=== PATIENT | male | born 1960 | race Caucasian/White ===

== ENCOUNTER 2019-07-10 17:48 | Emergency (ER) | payer OTHER, SELFPAY ==
[2019-07-10 17:55] VITALS: BP 168/96; PULSE 110; RESP 20; TEMP 36.8; O2SAT 100
--- NOTE | 2019-07-10 17:59 | ED.CHESTPAIN ---
HPI - Chest Pain General Chief Complaint: Dizziness Stated Complaint: chest pain dizzy Time Seen by Provider: 07/10/19 17:59 Source: patient and RN notes reviewed Mode of arrival: ambulatory Limitations: no limitations History of Present Illness HPI narrative: 58 year old male who presents to express care with complaints of left sternal chest pain of varying intensity since noon yesterday.Patient states that his pain is worse with exertion, denies any nausea, diaphoresis, or any shortness of breath with his pain. Patient describes his pain as being achy and sharp at times with some radiation of pain to his left arm with numbness feeling, presently rates his pain as 7/10. Patient also states that he has been experiencing intermittent episodes of feeling dizzy and lightheaded especially with position changes, denies any syncopal episodes. Patient states that he has taken (5) 81mg baby aspirins today and he took a nitro tab 1 hour ago with no improvement in his chest pain. 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 MD complaint: chest pain and other (lightheaded and dizziness) Pertinent past history: other (angina, copd, TIA,GERD,hiatal hernia, reports congenital hole in heart) Onset (ago): day(s) (1) Timing of current episode: constant Prior episodes: Yes Onset: during exertion Pain location: left chest Pain radiation: left arm Severity: moderate Pain scale (0-10): 7 Quality: aching and sharp Relieving factors: nothing Exacerbating factors: exertion Associated symptoms: other (dizziness and lightheaded) Treatment prior to arrival: aspirin and nitroglycerin Risk Factors Coronary artery disease risk factors: smoking history and hypertension Thoracic aortic dissection risk factors: longstanding hypertension Related Data Home Medications Medication Instructions Recorded Confirmed amlodipine 10 mg PO DAILY 04/12/19 07/10/19 albuterol sulfate [ProAir HFA] 2 puff INHALATION QID PRN 07/10/19 07/10/19 carvedilol 12.5 mg PO BID 07/10/19 07/10/19 fluoxetine 20 mg PO DAILY 07/10/19 07/10/19 fluticasone propionate [Flovent 2 puff INHALATION BID 07/10/19 07/10/19 HFA] latanoprost 1 drp OPHTHALMIC (EYE) QPM 07/10/19 07/10/19 lisinopril 40 mg PO DAILY 07/10/19 07/10/19 quetiapine 50 mg PO HS 07/10/19 07/10/19 ranitidine HCl 150 mg PO BID 07/10/19 07/10/19 venlafaxine 50 mg PO BID 07/10/19 07/10/19 Allergies Allergy/AdvReac Type Severity Reaction Status Date / Time Penicillins Allergy Severe Hives Verified 07/10/19 18:11 Sulfa (Sulfonamide Allergy Unknown Rash Verified 07/10/19 18:11 Antibiotics) NSAIDS (Non-Steroidal AdvReac Intermediate Other Verified 07/10/19 18:11 Anti-Inflamma Review of Systems Review of Systems: Narrative: CONSTITUTIONAL: Denies fever, chills, or sweats. EYES: Denies visual changes, redness, or discharge. ENT: Denies rhinorrhea, congestion, sore throat, or otalgia. CARDIOVASCULAR:positive for left sided chest pain with radiation to left arm no palpitations or peripheral edema RESPIRATORY: Denies cough or dyspnea. GASTROINTESTINAL: Denies abdominal pain, nausea, vomiting, or diarrhea. GENITOURINARY: Denies dysuria or hematuria. SKIN: Denies rash or itching. MUSCULOSKELETAL:reports chronic back pain, no joint pain, or myalgia. NEUROLOGIC: Denies headache, numbness to left arm no weakness, intermittent dizziness and feelings of lightheadedness. PSYCHIATRIC: Positive history anxiety or depression. All systems reviewed & are unremarkable except as noted in HPI and below PMFSH Past Medical History Medical History (Updated 07/11/19 @ 20:31 by Mira Mcduffie NP) Arthritis Back pain COPD (chronic obstructive pulmonary disease) Glaucoma Hiatal hernia Hypertension Seizures TIA
--- NOTE | 2019-07-10 18:08 | ECG_ITS ---
Measurements Intervals [place] Rate: 101 P: 56 TN: 146 QRS: 22 QRSD: 93 T: 61 QT: 330 QTc: 428 Interpretive Statements SINUS TACHYCARDIA BASELINE ARTIFACT- I, II, AVR, AVL, AVF BORDERLINE ECG Electronically Signed On 07-11-2019 8:09:31 CDT by Jaren Hernandez D.O.
== END 2019-07-10 18:30 | disposition short-term general hospital (02) ==
LOC: EXPBETH 17:52
PROVIDERS: Emergency Provider Registered Nurse; PCP Internal Medicine
DX: R42 Dizziness and giddiness (principal); R07.9 Chest pain, unspecified; F17.210 Nicotine dependence, cigarettes, uncomplicated; M19.90 Unspecified osteoarthritis, unspecified site; J44.9 Chronic obstructive pulmonary disease, unspecified; H40.9 Unspecified glaucoma; I10 Essential (primary) hypertension; Z79.82 Long term (current) use of aspirin
CPT/HCPCS: 93005; 99215; G0463

== ENCOUNTER 2019-07-19 10:45 | Emergency (ER) | payer OTHER, SELFPAY ==
--- NOTE | ~2019-07-19 | XR_ITS ---
XR knee LT min 4V DATE: 07/19/2019 11:33 INDICATION: Twisted knee on bladder. Posterolateral left knee pain TECHNIQUE: [place], crosstable lateral, AP and bilateral oblique views COMPARISON: None FINDINGS: No fracture or dislocation or joint effusion is detected. No periosteal reaction or bone de struction. Joint spaces are preserved. No radiopaque intra-articular loose body or chondrocalcinosis. Femoral artery calcification. IMPRESSION: No significant radiographic abnormality of the left knee Reviewed, dictated and finalized at location A.
[2019-07-19 10:54] VITALS: BP 107/64; PULSE 101; RESP 18; TEMP 36.7; O2SAT 100
--- NOTE | 2019-07-19 11:05 | ED.BACK ---
HPI - Back Pain/Injury General Chief Complaint: Extremity Injury, Lower Stated Complaint: back/leg injury Time Seen by Provider: 07/19/19 11:05 Source: patient and RN notes reviewed History of Present Illness HPI Narrative: Patient is a 58-year-old male that presents the urgent care with complaints of left knee pain that radiates down the leg and up the leg. Patient states that yesterday he was pressure washing on a ladder and twisted, feeling the left knee pop. Patient states that the pain is constant and sharp all over the knee. Patient denies any swelling. Denies any use of [id number] medication for pain. Patient is sitting with the left knee bent over the right knee without any notable pain. Patient appears to be under the influence. Patient is very blunt and rude. Patient also changes his story stating that he has low back pain and then states that the pain goes up to his left shoulder radiating from the left knee . Patient has no visible difficulty ambulating. No other acute complaints. No acute distress noted. Patient read the plan of care. Related Data Home Medications Medication Instructions Recorded Confirmed albuterol sulfate [ProAir HFA] 2 puff INHALATION BID PRN 07/19/19 07/19/19 amlodipine-benazepril 1 cap PO DAILY 07/19/19 07/19/19 atorvastatin 10 mg PO DAILY 07/19/19 07/19/19 carvedilol 12.5 mg PO BID 07/19/19 07/19/19 clonazepam 1 mg PO TID 07/19/19 07/19/19 dicyclomine 10 mg PO TID 07/19/19 07/19/19 finasteride 5 mg PO DAILY 07/19/19 07/19/19 fluoxetine 20 mg PO DAILY 07/19/19 07/19/19 fluticasone propionate [Flovent 2 puff INHALATION BID 07/19/19 07/19/19 HFA] ibuprofen 600 mg PO TID PRN 07/19/19 07/19/19 lisinopril 40 mg PO DAILY 07/19/19 07/19/19 omeprazole 20 mg PO DAILY 07/19/19 07/19/19 pantoprazole 40 mg PO HS 07/19/19 07/19/19 quetiapine 50 mg PO HS 07/19/19 07/19/19 ranitidine HCl 150 mg PO BID 07/19/19 07/19/19 ropinirole 0.25 mg PO DAILY 07/19/19 07/19/19 rosuvastatin 10 mg PO DAILY 07/19/19 07/19/19 tamsulosin 0.4 mg PO HS 07/19/19 07/19/19 tizanidine 4 mg PO TID PRN 07/19/19 07/19/19 tramadol 50 mg PO Q4H PRN 07/19/19 07/19/19 venlafaxine 150 mg PO DAILY 07/19/19 07/19/19 Allergies Allergy/AdvReac Type Severity Reaction Status Date / Time Penicillins Allergy Severe Hives Verified 07/19/19 11:15 Sulfa (Sulfonamide Allergy Unknown Rash Verified 07/19/19 11:15 Antibiotics) NSAIDS (Non-Steroidal AdvReac Intermediate Other Verified 07/19/19 11:15 Anti-Inflamma Review of Systems Review of Systems: Narrative: CONSTITUTIONAL: Denies fever, chills, or sweats. EYES: Denies visual changes, redness, or discharge. ENT: Denies rhinorrhea, congestion, sore throat, or otalgia. CARDIOVASCULAR: Denies chest pain, palpitations, or edema. RESPIRATORY: Denies cough or dyspnea. GASTROINTESTINAL: Denies abdominal pain, nausea, vomiting, or diarrhea. GENITOURINARY: Denies dysuria or hematuria. SKIN: Denies rash or itching. MUSCULOSKELETAL: Reports of left knee radiating up and down the right leg NEUROLOGIC: Denies headache, numbness, or weakness. All other systems reviewed are negative, except as documented in HPI. [facility] Past Medical History Medical History (Updated 07/19/19 @ 11:56 by JADA Gage) Arthritis Back pain COPD (chronic obstructive pulmonary disease) Glaucoma Hiatal hernia Hypertension Seizures TIA (transient ischemic attack) Surgical History Surgical History (Updated 07/11/19 @ 20:32 by Mira Mcduffie NP) H/O vasectomy History of tonsillectomy and adenoidectomy Hx of appendectomy Hx of cholecystectomy Family History Family History (Updated 07/11/19 @ 20:20 by Mira Mcduffie NP) Other Diabetes mellitus Heart disease Hypertension Social History Social History (Updated 07/11/19 @ 20:18 by Mira Mcduffie NP) Smoking packs per day: 0.5 Smoking cigarettes per day: 10.0 Years smoked: 35 Smoking pack-years: 17.50 [place]
== END 2019-07-19 12:03 | disposition home or self-care (01) ==
PROVIDERS: Emergency Provider Nurse Practitioner Family; PCP Internal Medicine
DX: M25.562 Pain in left knee (principal); M19.90 Unspecified osteoarthritis, unspecified site; J44.9 Chronic obstructive pulmonary disease, unspecified; H40.9 Unspecified glaucoma; I10 Essential (primary) hypertension; Z86.73 Personal history of transient ischemic attack (TIA), and cerebral infarction without residual deficits
CPT/HCPCS: 73564; 99213; G0463

== ENCOUNTER 2020-09-22 11:25 | Emergency (ER) | payer OTHER, SELFPAY ==
[2020-09-22 11:31] VITALS: BP 135/77; PULSE 83; RESP 16; TEMP 36.6; O2SAT 100
--- NOTE | 2020-09-22 11:52 | ED.GENADULT ---
HPI - General Adult General Chief complaint: Headache Stated complaint: dizzy Time Seen by Provider: 09/22/20 11:53 Source: patient Mode of arrival: ambulatory Limitations: no limitations History of Present Illness HPI narrative: 59-year-old male patient presents to the [facility] with complaints of a frontal headache for the past 3 to 4 days. Patient states that started with saw his primary doctor was told that his blood pressure was high at which given new blood pressure medications. Patient does have history of hypertension and TIA in the past. Patient does also have COPD and is an active smoker. Patient states that his blood pressure has come down but his headache is not any better and complaining of dizziness that is worse when either he sits up or lays down. Patient states he is also developed blurred vision that started yesterday. Patient states he is also had some nausea. Patient states he has had a little bit of diarrhea but no vomiting. Patient also is complaining of chest pain or shortness of breath. Related Data Home Medications Medication Instructions Recorded Confirmed albuterol sulfate [ProAir HFA] 2 puff INHALATION BID PRN 07/19/19 07/19/19 amlodipine-benazepril 1 cap PO DAILY 07/19/19 07/19/19 atorvastatin 10 mg PO DAILY 07/19/19 07/19/19 carvedilol 12.5 mg PO BID 07/19/19 07/19/19 clonazepam 1 mg PO TID 07/19/19 07/19/19 dicyclomine 10 mg PO TID 07/19/19 07/19/19 finasteride 5 mg PO DAILY 07/19/19 07/19/19 fluoxetine 20 mg PO DAILY 07/19/19 07/19/19 fluticasone propionate [Flovent 2 puff INHALATION BID 07/19/19 07/19/19 HFA] ibuprofen 600 mg PO TID PRN 07/19/19 07/19/19 lisinopril 40 mg PO DAILY 07/19/19 07/19/19 omeprazole 20 mg PO DAILY 07/19/19 07/19/19 pantoprazole 40 mg PO HS 07/19/19 07/19/19 quetiapine 50 mg PO HS 07/19/19 07/19/19 ranitidine HCl 150 mg PO BID 07/19/19 07/19/19 ropinirole 0.25 mg PO DAILY 07/19/19 07/19/19 rosuvastatin 10 mg PO DAILY 07/19/19 07/19/19 tamsulosin 0.4 mg PO HS 07/19/19 07/19/19 tizanidine 4 mg PO TID PRN 07/19/19 07/19/19 tramadol 50 mg PO Q4H PRN 07/19/19 07/19/19 venlafaxine 150 mg PO DAILY 07/19/19 07/19/19 Allergies Allergy/AdvReac Type Severity Reaction Status Date / Time Penicillins Allergy Severe Hives Verified 07/19/19 11:15 Sulfa (Sulfonamide Allergy Unknown Rash Verified 07/19/19 11:15 Antibiotics) NSAIDS (Non-Steroidal AdvReac Intermediate Other Verified 07/19/19 11:15 Anti-Inflamma Review of Systems Review of Systems: Narrative: CONSTITUTIONAL: Denies fever, chills, or sweats. EYES: Denies visual changes, redness, or discharge. ENT: Denies rhinorrhea, congestion, sore throat, or otalgia. CARDIOVASCULAR: Positive chest pain, denies palpitations, or edema. RESPIRATORY: Denies cough, positive dyspnea. GASTROINTESTINAL: Denies abdominal pain, positive nausea, denies vomiting, positive diarrhea. GENITOURINARY: Denies dysuria or hematuria. SKIN: Denies rash or itching. MUSCULOSKELETAL: Denies back pain, joint pain, or myalgia. NEUROLOGIC: Positive frontal headache, denies numbness, or weakness. PSYCHIATRIC: Denies anxiety or depression. [facility] Past Medical History Medical History Arthritis Back pain COPD (chronic obstructive pulmonary disease) Glaucoma Hiatal hernia Hypertension Seizures TIA (transient ischemic attack) Surgical History Surgical History H/O vasectomy History of tonsillectomy and adenoidectomy Hx of appendectomy Hx of cholecystectomy Family History Family History Other Diabetes mellitus Heart disease Hypertension Social History Social History Smoking packs per day: 0.5 Smoking cigarettes per day: 10.0 Years smoked: 35 Smoking pack-years: 17.50 Smoking status: Current
--- NOTE | 2020-09-22 12:03 | ECG_ITS ---
Measurements Intervals [place] Rate: 78 P: 50 ND: 154 QRS: 12 QRSD: 86 T: 62 QT: 348 QTc: 397 Interpretive Statements SINUS RHYTHM BASELINE ARTIFACT- I, II, III, AVR, AVL, AVF NORMAL ECG Electronically Signed On 09-22-2020 14:57:35 CDT by Jaren Hernandez D.O.
== END 2020-09-22 12:30 | disposition short-term general hospital (02) ==
PROVIDERS: Emergency Provider Nurse Practitioner Family; PCP Nurse Practitioner Family
DX: R51.9 Headache, unspecified (principal); R07.9 Chest pain, unspecified; R42 Dizziness and giddiness; R06.02 Shortness of breath; I10 Essential (primary) hypertension; Z86.73 Personal history of transient ischemic attack (TIA), and cerebral infarction without residual deficits; M19.90 Unspecified osteoarthritis, unspecified site; J44.9 Chronic obstructive pulmonary disease, unspecified; H40.9 Unspecified glaucoma
CPT/HCPCS: 93005; 99215; G0463

== ENCOUNTER 2020-09-25 14:23 | Emergency (ER) | payer OTHER, SELFPAY ==
[2020-09-25 14:28] VITALS: BP 148/88; PULSE 109; RESP 18; TEMP 36.3; O2SAT 100
--- NOTE | 2020-09-25 14:29 | ED.BACK ---
HPI - Back Pain/Injury General Stated Complaint: Back pain Time Seen by Provider: 09/25/20 14:29 Source: patient and RN notes reviewed History of Present Illness HPI Narrative: Patient is a 59-year-old male who presents the urgent care with complaints of acute on chronic upper back/neck pain. Patient states that his doctor will not refill his clonazepam and he is asking for refill of his medication. Patient was seen at our facility on Wednesday for chest pain and sent by EMS to [facility]. Patient states that he was discharged from the ER and they told him it was due to his thyroid issues . Patient currently denies of any acute new onset of pains or abnormalities. Denies of any recent trauma or injury. No other acute complaints. No acute distress noted. Patient aware of the plan of care. Some parts of this dictation were generated by voice recognition software and may contain typographical and/or grammatical inaccuracies. Related Data Home Medications Medication Instructions Recorded Confirmed albuterol sulfate [ProAir HFA] 2 puff INHALATION BID PRN 07/19/19 07/19/19 amlodipine-benazepril 1 cap PO DAILY 07/19/19 07/19/19 atorvastatin 10 mg PO DAILY 07/19/19 07/19/19 carvedilol 12.5 mg PO BID 07/19/19 07/19/19 clonazepam 1 mg PO TID 07/19/19 07/19/19 dicyclomine 10 mg PO TID 07/19/19 07/19/19 finasteride 5 mg PO DAILY 07/19/19 07/19/19 fluoxetine 20 mg PO DAILY 07/19/19 07/19/19 fluticasone propionate [Flovent 2 puff INHALATION BID 07/19/19 07/19/19 HFA] ibuprofen 600 mg PO TID PRN 07/19/19 07/19/19 lisinopril 40 mg PO DAILY 07/19/19 07/19/19 omeprazole 20 mg PO DAILY 07/19/19 07/19/19 pantoprazole 40 mg PO HS 07/19/19 07/19/19 quetiapine 50 mg PO HS 07/19/19 07/19/19 ranitidine HCl 150 mg PO BID 07/19/19 07/19/19 ropinirole 0.25 mg PO DAILY 07/19/19 07/19/19 rosuvastatin 10 mg PO DAILY 07/19/19 07/19/19 tamsulosin 0.4 mg PO HS 07/19/19 07/19/19 tizanidine 4 mg PO TID PRN 07/19/19 07/19/19 tramadol 50 mg PO Q4H PRN 07/19/19 07/19/19 venlafaxine 150 mg PO DAILY 07/19/19 07/19/19 Allergies Allergy/AdvReac Type Severity Reaction Status Date / Time Penicillins Allergy Severe Hives Verified 09/25/20 14:37 Sulfa (Sulfonamide Allergy Unknown Rash Verified 09/25/20 14:37 Antibiotics) NSAIDS (Non-Steroidal AdvReac Intermediate Other Verified 09/25/20 14:37 Anti-Inflamma Review of Systems Review of Systems: Narrative: CONSTITUTIONAL: Denies fever, chills, or sweats. EYES: Denies visual changes, redness, or discharge. ENT: Denies rhinorrhea, congestion, sore throat, or otalgia. CARDIOVASCULAR: Denies chest pain, palpitations, or edema. RESPIRATORY: Denies cough or dyspnea. GASTROINTESTINAL: Denies abdominal pain, nausea, vomiting, or diarrhea. GENITOURINARY: Denies dysuria or hematuria. SKIN: Denies rash or itching. MUSCULOSKELETAL: Reports of upper neck/back pain NEUROLOGIC: Denies headache, numbness, or weakness. All other systems reviewed are negative, except as documented in HPI. [facility] Past Medical History Medical History Arthritis Back pain COPD (chronic obstructive pulmonary disease) Glaucoma Hiatal hernia Hypertension Seizures TIA (transient ischemic attack) Surgical History Surgical History H/O vasectomy History of tonsillectomy and adenoidectomy Hx of appendectomy Hx of cholecystectomy Family History Family History Other Diabetes mellitus Heart disease Hypertension Social History Social History Smoking packs per day: 0.5 Smoking cigarettes per day: 10.0 Years smoked: 35 Smoking pack-years: 17.50 Smoking status: Current every day smoker Tobacco type: cigarettes Gender identity (if verbalized by the patient): Male Comments At the time of my si
== END 2020-09-25 14:45 | disposition home or self-care (01) ==
PROVIDERS: Emergency Provider Nurse Practitioner Family; PCP Nurse Practitioner Family
DX: Z76.0 Encounter for issue of repeat prescription (principal); G40.909 Epilepsy, unspecified, not intractable, without status epilepticus; M19.90 Unspecified osteoarthritis, unspecified site; J44.9 Chronic obstructive pulmonary disease, unspecified; H40.9 Unspecified glaucoma; I10 Essential (primary) hypertension; Z86.73 Personal history of transient ischemic attack (TIA), and cerebral infarction without residual deficits
CPT/HCPCS: 99211; G0463

== ENCOUNTER 2020-10-08 11:09 | Emergency (ER) | payer OTHER, SELFPAY ==
[2020-10-08 11:12] VITALS: BP 144/80; PULSE 91; RESP 20; TEMP 36.6; O2SAT 100
[2020-10-08 11:20] VITALS: BP 160/87; PULSE 87
[2020-10-08 11:22] VITALS: BP 147/94; PULSE 87
--- NOTE | 2020-10-08 11:23 | ECG_ITS ---
Measurements Intervals [place] Rate: 89 P: 47 ME: 165 QRS: 8 QRSD: 87 T: 56 QT: 342 QTc: 416 Interpretive Statements SINUS RHYTHM BASELINE WANDER- I, III NORMAL ECG Electronically Signed On 10-08-2020 11:44:37 CDT by Jaren Hernandez D.O.
[2020-10-08 11:24] VITALS: BP 149/94; PULSE 90
--- NOTE | 2020-10-08 11:28 | ED.GENADULT ---
HPI - General Adult General Chief complaint: Dizziness Stated complaint: dizzy chest tightness Time Seen by Provider: 10/08/20 11:23 Source: patient and RN notes reviewed Mode of arrival: ambulatory Limitations: no limitations History of Present Illness HPI narrative: 59-year-old male presents with complaints of dizziness, nausea, and headache (not the worst of his life) that has been going on for the past 2 days. ?Stoney reports symptoms increased today. Routine Omeprazole without relief. ?Exacerbating factors consist of changing position too fast, turning head from side to side too fast. ?Relieving factors are sitting still. ?Denies ear pain, ear itching, ear trauma, trauma to head, syncopal episodes, altered vision, altered speech, confusion, or seizure activity. ?Denies numbness or tingling in extremities. ?Denies dyspnea. ?Denies URI symptoms, fever, or chills. ?Tolerating p.o. intake well. ?Remains active. The patient reports he has not been diagnosed with COVID-19. ?The patient reports he is not waiting for the results of a COVID-19 lab test. ?The patient reports he does not have a new or worsening cough or shortness of breath. The patient reports he does not have any rhinorrhea, congestion, loss of taste, sore throat, and diarrhea. ?Denies recent traveling. Denies concerns for COVID-19 or exposures. ?At this time, the patient is not suspected of having COVID-19. Complaints of epigastric abdomen pain radiating into the chest with nausea for the past 2 days. ?Stoney reports history of a hiatal hernia and believes this time to have his esophagus stretched. ?History of hiatal hernia, problems seeing GI MD due to insurance. ?Stoney reports eating donuts and drinking milk without difficulty. ?Nausea without emesis. ?No family history of sudden . ?Denies diaphoresis. ?Diarrhea for 2 days last episode this morning without blood. ?No flank pain. Exacerbating factors consist of eating. ?No genital pain. ?No genital discharge. ?No concerns for STDs.No high fevers. ?Denies dysuria, hematuria, and genital bleeding. ?Urine output within normal limits.? Some parts of this dictation were generated by voice recognition software and may contain typographical and/or grammatical inaccuracies. Related Data Home Medications Medication Instructions Recorded Confirmed albuterol sulfate [ProAir HFA] 2 puff INHALATION BID PRN 07/19/19 10/08/20 atorvastatin 10 mg PO DAILY 07/19/19 10/08/20 carvedilol 12.5 mg PO BID 07/19/19 10/08/20 clonazepam 1 mg PO TID 07/19/19 10/08/20 dicyclomine 10 mg PO TID 07/19/19 10/08/20 finasteride 5 mg PO DAILY 07/19/19 10/08/20 fluoxetine 20 mg PO DAILY 07/19/19 10/08/20 fluticasone propionate [Flovent 2 puff INHALATION BID 07/19/19 10/08/20 HFA] ibuprofen 600 mg PO TID PRN 07/19/19 10/08/20 lisinopril 40 mg PO DAILY 07/19/19 10/08/20 omeprazole 20 mg PO DAILY 07/19/19 10/08/20 quetiapine 50 mg PO HS 07/19/19 10/08/20 ropinirole 0.25 mg PO DAILY 07/19/19 10/08/20 rosuvastatin 10 mg PO DAILY 07/19/19 10/08/20 tamsulosin 0.4 mg PO HS 07/19/19 10/08/20 tizanidine 4 mg PO TID PRN 07/19/19 10/08/20 tramadol 50 mg PO Q4H PRN 07/19/19 10/08/20 budesonide-formoterol [Symbicort] 2 puff INHALATION BID 10/08/20 10/08/20 levothyroxine 100 mcg PO DAILY 10/08/20 10/08/20 venlafaxine 100 mg PO TID 10/08/20 10/08/20 Allergies Allergy/AdvReac Type Severity Reaction Status Date / Time Penicillins Allergy Severe Hives Verified 10/08/20 11:28 Sulfa (Sulfonamide Allergy Unknown Rash Verified 10/08/20 11:28 Antibiotics) NSAIDS (Non-Steroidal AdvReac Intermediate Abdominal Verified 10/08/20 12:24 Anti-Inflamma Pain Review of Systems Review of Systems: Narrative: CONSTITUTIONAL: Denies fever, chills, sweats. EYES: Denies visual changes, redness, discharge. Complaints of swallowing problems. ENT: Denies rhinorrhea, congestion, sore throat, otalgia. CARDIOVASCULAR: Denies chest pain, palpitations, edema. RESPIRATOR
[2020-10-08] MEDS: MECLIZINE HCL 25 MG TABLET 50 MG PO (11:55)
[2020-10-08] MEDS: ONDANSETRON HCL ODT 4 MG TABLET PO (11:55)
[2020-10-08] MEDS: KETOROLAC (*BKC) 60 MG/2 ML VIAL IM (11:56)
[2020-10-08] MEDS: LIDOCAINE HCL 2% VISC SOLN 15 ML UDC PO (11:56)
[2020-10-08] MEDS: MAG HYDROX/AL HYDROX/SIMETH 30 ML UDC PO (11:56)
[2020-10-08 12:20] VITALS: BP 145/82; PULSE 82
== END 2020-10-08 12:35 | disposition home or self-care (01) ==
PROVIDERS: Emergency Provider Nurse Practitioner Family
DX: H81.10 Benign paroxysmal vertigo, unspecified ear (principal); R10.13 Epigastric pain; F17.210 Nicotine dependence, cigarettes, uncomplicated; M19.90 Unspecified osteoarthritis, unspecified site; J44.0 Chronic obstructive pulmonary disease with (acute) lower respiratory infection; I10 Essential (primary) hypertension; G40.909 Epilepsy, unspecified, not intractable, without status epilepticus; Z86.73 Personal history of transient ischemic attack (TIA), and cerebral infarction without residual deficits; Z98.52 Vasectomy status
CPT/HCPCS: 93005; 96372; 99213; A9270; G0463; J1885

== ENCOUNTER 2020-12-07 17:58 | Emergency (ER) | payer OTHER, SELFPAY ==
[2020-12-07 18:02] VITALS: BP 114/72; PULSE 95; RESP 20; TEMP 37; O2SAT 99
--- NOTE | 2020-12-07 18:51 | ED.PSYCH ---
HPI - Psych General Chief Complaint: Psychiatric Symptoms Stated Complaint: chest congestion Source: patient Mode of arrival: ambulatory Limitations: no limitations History of Present Illness HPI Narrative: Patient is a 60-year-old male who presents to urgent care. Patient presents and is slightly paranoid reporting cough. He reports history of schizophrenia. He states he is hearing voices and voices are telling him to harm himself at this time. Patient will not state a plan to harm himself. Patient states that he has no family and that they will not help. Patient is able to answer questions appropriately. Patient reports that he is on multiple medications and is medication compliant. MD complaint: suicidal ideation Related Data Home Medications Medication Instructions Recorded Confirmed albuterol sulfate [ProAir HFA] 2 puff INHALATION BID PRN 07/19/19 10/08/20 atorvastatin 10 mg PO DAILY 07/19/19 10/08/20 carvedilol 12.5 mg PO BID 07/19/19 10/08/20 clonazepam 1 mg PO TID 07/19/19 10/08/20 dicyclomine 10 mg PO TID 07/19/19 10/08/20 finasteride 5 mg PO DAILY 07/19/19 10/08/20 fluoxetine 20 mg PO DAILY 07/19/19 10/08/20 fluticasone propionate [Flovent 2 puff INHALATION BID 07/19/19 10/08/20 HFA] ibuprofen 600 mg PO TID PRN 07/19/19 10/08/20 lisinopril 40 mg PO DAILY 07/19/19 10/08/20 omeprazole 20 mg PO DAILY 07/19/19 10/08/20 quetiapine 50 mg PO HS 07/19/19 10/08/20 ropinirole 0.25 mg PO DAILY 07/19/19 10/08/20 rosuvastatin 10 mg PO DAILY 07/19/19 10/08/20 tamsulosin 0.4 mg PO HS 07/19/19 10/08/20 tizanidine 4 mg PO TID PRN 07/19/19 10/08/20 tramadol 50 mg PO Q4H PRN 07/19/19 10/08/20 budesonide-formoterol [Symbicort] 2 puff INHALATION BID 10/08/20 10/08/20 levothyroxine 100 mcg PO DAILY 10/08/20 10/08/20 venlafaxine 100 mg PO TID 10/08/20 10/08/20 Allergies Allergy/AdvReac Type Severity Reaction Status Date / Time Penicillins Allergy Severe Hives Verified 12/07/20 18:33 Sulfa (Sulfonamide Allergy Unknown Rash Verified 12/07/20 18:33 Antibiotics) NSAIDS (Non-Steroidal AdvReac Intermediate Abdominal Verified 12/07/20 18:33 Anti-Inflamma Pain Review of Systems Review of Systems: CONSTITUTIONAL: Denies fever, chills, or sweats. EYES: Denies visual changes, redness, or discharge. ENT: Denies rhinorrhea, congestion, sore throat, or otalgia. CARDIOVASCULAR: Denies chest pain, palpitations, or edema. RESPIRATORY: Reports cough GASTROINTESTINAL: Denies abdominal pain, nausea, vomiting, or diarrhea. GENITOURINARY: Denies dysuria or hematuria. SKIN: Denies rash or itching. MUSCULOSKELETAL: Denies back pain, joint pain, or myalgia. NEUROLOGIC: Denies headache, numbness, dizziness, or weakness. PSYCHIATRIC: Reports hearing voices [facility] Past Medical History Medical History Anxiety Arthritis Back pain COPD (chronic obstructive pulmonary disease) Depression Epilepsy Gastric ulcer Glaucoma Hiatal hernia Hypertension Hypothyroidism Seizures TIA (transient ischemic attack) Surgical History Surgical History H/O vasectomy History of tonsillectomy and adenoidectomy Hx of appendectomy Hx of cholecystectomy Family History Family History Other Diabetes mellitus Heart disease Hypertension Social History Social History Smoking packs per day: 0.5 Smoking cigarettes per day: 10.0 Years smoked: 35 Smoking pack-years: 17.50 Smoking status: Current every day smoker Tobacco type: cigarettes Gender identity (if verbalized by the patient): Male Comments At the time of signature, I have reviewed and agree with nursing past medical, surgical, social, and family history unless otherwise noted. Please see nursing chart for further information. There is no relevant family history pe
== END 2020-12-07 19:18 | disposition short-term general hospital (02) ==
PROVIDERS: Emergency Provider Nurse Practitioner; PCP Nurse Practitioner Family
DX: R44.0 Auditory hallucinations (principal); Z20.822 Contact with and (suspected) exposure to COVID-19; F17.210 Nicotine dependence, cigarettes, uncomplicated; M19.90 Unspecified osteoarthritis, unspecified site; J44.9 Chronic obstructive pulmonary disease, unspecified; I10 Essential (primary) hypertension; H40.9 Unspecified glaucoma; Z86.73 Personal history of transient ischemic attack (TIA), and cerebral infarction without residual deficits; F41.9 Anxiety disorder, unspecified; F32.9 Major depressive disorder, single episode, unspecified
CPT/HCPCS: 87426; 99215; C9803; G0463

== ENCOUNTER 2020-12-15 16:03 | Emergency (ER) | payer OTHER, SELFPAY ==
[2020-12-15 16:10] VITALS: BP 147/111; PULSE 108; RESP 18; TEMP 37; O2SAT 100
--- NOTE | 2020-12-15 16:19 | ED.GENADULT ---
HPI - General Adult General Chief complaint: Psychiatric Symptoms Stated complaint: mental prob Time Seen by Provider: 12/15/20 16:19 Source: patient and RN notes reviewed Mode of arrival: ambulatory Limitations: no limitations History of Present Illness HPI narrative: 60-year-old male with history of mental health disorders presents to the [facility] with complaints of auditory hallucinations. Patient states that on Wednesday when he saw his ex- and sister the voices started getting worse. States that they are telling him to hurt himself and others. Reports that he starts arguing with them back. States he is going to flip out if they do not stop Related Data Home Medications Medication Instructions Recorded Confirmed albuterol sulfate [ProAir HFA] 2 puff INHALATION BID PRN 07/19/19 10/08/20 atorvastatin 10 mg PO DAILY 07/19/19 10/08/20 carvedilol 12.5 mg PO BID 07/19/19 10/08/20 clonazepam 1 mg PO TID 07/19/19 10/08/20 dicyclomine 10 mg PO TID 07/19/19 10/08/20 finasteride 5 mg PO DAILY 07/19/19 10/08/20 fluoxetine 20 mg PO DAILY 07/19/19 10/08/20 fluticasone propionate [Flovent 2 puff INHALATION BID 07/19/19 12/15/20 HFA] ibuprofen 600 mg PO TID PRN 07/19/19 12/15/20 lisinopril 40 mg PO DAILY 07/19/19 12/15/20 omeprazole 20 mg PO DAILY 07/19/19 12/15/20 quetiapine 50 mg PO HS 07/19/19 12/15/20 ropinirole 0.25 mg PO DAILY 07/19/19 12/15/20 rosuvastatin 10 mg PO DAILY 07/19/19 12/15/20 tamsulosin 0.4 mg PO HS 07/19/19 12/15/20 tizanidine 4 mg PO TID PRN 07/19/19 12/15/20 tramadol 50 mg PO Q4H PRN 07/19/19 12/15/20 budesonide-formoterol [Symbicort] 2 puff INHALATION BID 10/08/20 12/15/20 levothyroxine 100 mcg PO DAILY 10/08/20 12/15/20 venlafaxine 100 mg PO TID 10/08/20 12/15/20 Allergies Allergy/AdvReac Type Severity Reaction Status Date / Time Penicillins Allergy Severe Hives Verified 12/15/20 16:13 Sulfa (Sulfonamide Allergy Unknown Rash Verified 12/15/20 16:13 Antibiotics) NSAIDS (Non-Steroidal AdvReac Intermediate Abdominal Verified 12/15/20 16:13 Anti-Inflamma Pain Review of Systems Review of Systems: All systems reviewed & are unremarkable except as noted in HPI and below Constitutional: Constitutional: Reports no additional constitutional complaints Eyes: Eyes: Reports no additional eye complaints ENT: Reports system reviewed and no additional complaints, except as documented Cardiovascular: Cardiovascular: Reports no additional cardiovascular complaints Respiratory: Respiratory: Reports no additional respiratory complaints Musculoskeletal: Musculoskeletal: Reports no additional musculoskeletal complaints Integumentary/Breasts: Skin/Breast: Reports system reviewed and no additional complaints, except as docu Neurologic: Reports system reviewed and no additional complaints, except as documented Psychiatric: Psychiatric: Reports as per HPI, Reports homicidal ideation and Reports suicidal ideation Comments: Auditory hallucinations Endocrine: Endocrine: Reports no additional endocrine complaints Allergic/Immunologic: Allergic/Immunologic: Reports no additional allergic/immunologic complaints PMFSH Past Medical History Medical History Anxiety Arthritis Back pain COPD (chronic obstructive pulmonary disease) Depression Epilepsy Gastric ulcer Glaucoma Hiatal hernia Hypertension Hypothyroidism Seizures TIA (transient ischemic attack) Surgical History Surgical History H/O vasectomy History of tonsillectomy and adenoidectomy Hx of appendectomy Hx of cholecystectomy Family History Family History Other Diabetes mellitus Heart disease Hypertension Social History Social History Smoking packs per day: 0.5 Smoking cigarettes per day: 10.0 Years smoked: 35 Smoking pack-years: 17.
[2020-12-15 16:20] VITALS: BP 147/111; PULSE 108; RESP 18; TEMP 37; O2SAT 100
== END 2020-12-15 16:30 | disposition short-term general hospital (02) ==
PROVIDERS: Emergency Provider Nurse Practitioner; PCP Nurse Practitioner Family
DX: R44.0 Auditory hallucinations (principal); J44.9 Chronic obstructive pulmonary disease, unspecified; F41.9 Anxiety disorder, unspecified; F32.9 Major depressive disorder, single episode, unspecified; I10 Essential (primary) hypertension; F17.210 Nicotine dependence, cigarettes, uncomplicated; Z86.73 Personal history of transient ischemic attack (TIA), and cerebral infarction without residual deficits
CPT/HCPCS: 99215; G0463